=== PATIENT | male | born 1975 | race African-American/Black ===

== ENCOUNTER 2024-06-19 14:52 | Emergency (ER) | payer MEDICAID ==
[~2024-06-19] VITALS: Ht 172.7 cm; Wt 86.0 kg
[2024-06-19 14:57] VITALS: TEMP 36.7; O2SAT 97
[2024-06-19 15:57] LABS: CARBON DIOXIDE 27 mEq/L (21-32); CHLORIDE 109 mEq/L (98-107); POTASSIUM 3.4 mEq/L (3.5-5.1); SODIUM 141 mEq/L (136-145)
[2024-06-19 15:58] LABS: CALCIUM 7.8 mg/dL (8.7-10.4)
[2024-06-19 16:03] LABS: CREATININE 0.9 mg/dL (0.6-1.3); GLUCOSE 80 mg/dL (70-105); UREA NITROGEN BLOOD 16 mg/dL (9-23)
[2024-06-19] MEDS: KETOROLAC 30MG/ML VIAL IM ONE ×2 (16:08→16:13)
[2024-06-19 16:34] LABS: BASOPHILS % 0.4 % (0.0-2.0); EOSINOPHILS % 0.4 % (0.0-5.0); HEMATOCRIT. 44.6 % (42.0-52.0); HEMOGLOBIN. 15.1 g/dL (14.0-18.0); LYMPHOCYTES % 18.6 % (20.0-50.0); MEAN CORPUSCULAR HEMOGLOBIN 31.6 pg (28.0-32.0); MEAN CORPUSCULAR HGB CONC 33.9 g/dL (31.0-37.0); MEAN CORPUSCULAR VOLUME 93.1 fL (80.0-94.0); MEAN PLATELET VOLUME 7.2 fl (7.4-10.4); MONOCYTES % 7.7 % (2.0-8.0); NEUTROPHILS % 72.9 % (40.0-76.0); PLATELET 372 x1000/uL (130-400); RED BLOOD CELL COUNT 4.79 mill/uL (4.7-6.1); RED CELL DISTRIBUTION WIDTH 13.1 % (11.6-14.6); WHITE BLOOD COUNT 9.7 x1000/uL (4.5-11.0)
[2024-06-19] MEDS ORDERED: AMOX1TAB16 MT (17:34)
[2024-06-19 17:56] VITALS: BP 132/81; PULSE 76; RESP 16; O2SAT 99
== END 2024-06-19 18:03 | disposition home or self-care (01) ==
LOC: ER 14:52
DX: J01.90 Acute sinusitis, unspecified (principal); G51.0 Bell's palsy; Z79.899 Other long term (current) drug therapy
CPT/HCPCS: 99285; 70450; 80048; 85025; 36415; 70486; 96372; J1885